=== PATIENT | female | born 1955 | race Caucasian/White ===

== ENCOUNTER 2019-10-31 11:10 | Emergency (ER) | payer BC ==
[~2019-10-31] VITALS: Ht 157.5 cm; Wt 71.0 kg
[2019-10-31] MEDS ORDERED: proparacaine 0.5% ophthalmic drops 15ml EACHEYE ONE (13:05)
[2019-10-31 14:41] VITALS: BP 147/75
== END 2019-10-31 14:42 | disposition home or self-care (01) ==
LOC: ER 11:11
DX: S00.12XA Contusion of left eyelid and periocular area, initial encounter (principal); S00.81XA Abrasion of other part of head, initial encounter; H43.392 Other vitreous opacities, left eye; Z88.0 Allergy status to penicillin; Z88.2 Allergy status to sulfonamides; W18.49XA Other slipping, tripping and stumbling without falling, initial encounter; Y93.89 Activity, other specified; Y92.89 Other specified places as the place of occurrence of the external cause; Y99.9 Unspecified external cause status
CPT/HCPCS: 99284